=== PATIENT | male | born 1985 | race Two or more races ===

== ENCOUNTER 2022-09-25 10:33 | Emergency (ER) | payer MEDICAID ==
[~2022-09-25] VITALS: Ht 182.9 cm; Wt 79.2 kg
[2022-09-25 11:16] VITALS: BP 121/81
[2022-09-25] MEDS ORDERED: IBUP800T27 PO (11:23)
[2022-09-25] MEDS ORDERED: CEPH-510 PO (11:23)
== END 2022-09-25 11:30 | disposition home or self-care (01) ==
LOC: ER 10:33
DX: L66.4 Folliculitis ulerythematosa reticulata (principal)

== ENCOUNTER 2022-10-10 11:48 | Emergency (ER) | payer MEDICAID ==
[~2022-10-10] VITALS: Ht 182.9 cm; Wt 80.6 kg
[~2022-10-10 11:48] MED LIST: CEPH-510 PO; IBUP800T27 PO
[2022-10-10 12:05] VITALS: BP 118/77
[2022-10-10] MEDS ORDERED: KETOROLAC TROMETH 60MG/2ML VIAL IM ONE (13:30)
[2022-10-10] MEDS ORDERED: BACL10TA PO (14:17)
[2022-10-10] MEDS ORDERED: IBUP800T27 PO (14:17)
== END 2022-10-10 14:21 | disposition home or self-care (01) ==
LOC: ER 11:48
DX: M50.13 Cervical disc disorder with radiculopathy, cervicothoracic region (principal); I10 Essential (primary) hypertension; Z88.0 Allergy status to penicillin; Z79.899 Other long term (current) drug therapy
CPT/HCPCS: 72040; 96372; 99283; J1885